=== PATIENT | female | born 1975 | race Caucasian/White ===

== ENCOUNTER → 2016-10-07 | Outpatient (CLI) | payer BC ==
[2016-10-07 12:13] LABS: BASO % 0.5 %; BASO ABS # 0.05 K/uL (0-0.2); COMPLETE YES; EOS % 1.9 %; HEMATOCRIT 41.9 % (37-47); IG% 0.3 %; LYMPH % 24.5 %; MEAN CELL VOLUME 91.9 fL (80-100); MEAN CORPUSCULAR HEMOGLOBIN 32.2 pg (25-34); MEAN CORPUSCULAR HGB CONC 35.1 g/dl (32-36); MEAN PLATELET VOLUME 10.4 fL (7.4-10.4); MONO % 7.8 %; PLATELET COUNT 247 K/uL (130-400); RED BLOOD COUNT 4.56 M/uL (4.2-5.4)
[2016-10-07 12:32] LABS: BLOOD UREA NITROGEN 17 mg/dl (7-18); BUN/CREATININE RATIO 20.1 (10-20); CALCIUM 9.4 mg/dl (8.5-10.1); CARBON DIOXIDE 25 mmol/L (21-32); CHLORIDE 109 mmol/L (98-107); CREATININE 0.85 mg/dl (0.60-1.20); GLUCOSE 105 mg/dl (70-99); HDL CHOLESTEROL 54 mg/dl; SODIUM 140 mmol/L (136-145)
[2016-10-07 12:43] LABS: ALB/GLOB RATIO 1.2 (0.9-2); ALKALINE PHOSPHATASE 58 U/L (45-117); ALT/SGPT 39 U/L (12-78); AST/SGOT 13 U/L (15-37); C-REACTIVE PROTEIN < 0.29 mg/dl (0-0.29); CHOLESTEROL 223 mg/dl (0-200); CHOLESTEROL/HDL RATIO 4.1; LDL CHOLESTEROL CALCULATED 134 mg/dl; RHEUMATOID FACTOR < 10.0 U/mL (0-15); THYROID STIMULATING HORMONE 0.795 uIu/ml (0.300-4.500); TRIGLYCERIDES 175 mg/dl (0-150); VERY LOW DENSITY LIPOPROT CALC 35 mg/dl
[2016-10-07 14:54] LABS: LYME DISEASE AB IGG NEG (NEG)
[2016-10-07 15:00] LABS: LYME DISEASE AB IGM NEG (NEG)
== END | disposition home or self-care (01) ==
LOC: C.LABPVFM 08:04
PROVIDERS: ATTEND Neuromusculoskeletal Medicine & OMM
DX: Z00.00 Encounter for general adult medical examination without abnormal findings (principal); M13.0 Polyarthritis, unspecified; M25.561 Pain in right knee; M25.562 Pain in left knee; M25.551 Pain in right hip

== ENCOUNTER 2022-01-20 06:29 | Observation (INO) ==
--- NOTE | 2021-12-19 09:39 | PAT Medication Instructions ---
Medication Instructions Date of Service December 19, 2021 Home Medications Medication Instructions Recorded tramadol 50 mg tablet 50 mg PO Q8H PRN #30 tab 11/27/21 Wheeled Walker #1 ea 12/01/21 omeprazole 20 mg capsule,delayed release 20 mg PO QAM tramadol 50 mg tablet 50 mg PO Q8H PRN acetaminophen 500 mg tablet 1,000 mg PO Q6H PRN ibuprofen 200 mg tablet 800 mg PO Q6H PRN losartan 50 mg tablet 50 mg PO QAM ASK your surgeon for instructions ibuprofen 200 mg tablet 800 mg PO Q6H PRN DO NOT take the morning of surgery losartan 50 mg tablet 50 mg PO QAM Take morning of surgery With a small sip of water, OTHERWISE NOTHING TO EAT OR DRINK AFTER MIDNIGHT: omeprazole 20 mg capsule,delayed release 20 mg PO QAM tramadol 50 mg tablet 50 mg PO Q8H PRN (if needed) acetaminophen 500 mg tablet 1,000 mg PO Q6H PRN (if needed) Take evening before surgery tramadol 50 mg tablet 50 mg PO Q8H PRN (if needed) acetaminophen 500 mg tablet 1,000 mg PO Q6H PRN (if needed) Other Notes If you have any questions please call us at [phone] or [phone] or [phone] or [phone]
--- NOTE | 2021-12-25 08:23 | Anesthesiology Consultation ---
Date of Service December 25, 2021 Assessment & Plan (1) Encounter for pre-operative examination: Chart Review Chart Review: Acceptable Risk for Surgery (pending preop Covid testing results ) and Patient seen in Pre Admission Testing - Check test AM DOS -Discussed with Dr. Winter- pt's father had cardiac arrest with rocuronium- pt has had hx of GA without noted issues. Pt can proceed as scheduled Per PAT appt on 12/25/21, patient denies any recent travel or large group activities. No known Covid positive exposures or Covid related symptoms. No known Covid infection in the past 90 days. Pt is vaccinated for Covid. Preop Covid testing scheduled 01/05/22= will await results. Educated on importance of self quarantining, social distancing and wearing mask in public for the patient one week prior to surgery and after Covid testing done Right knee arthroscopy 06/05/20= Done under GA with LMA #4. Teaching & Discussion Pre-Anesthesia Teaching/Discussion Notes: Instructed NPO after midnight before surgery,except medications with 15 cc of water. Medication instructions provided according to the PAT guidelines. History Surgery Operation Date: 01/07/22 07:15 Proposed Procedures p Right Total Knee Arthroplasty - Jase Uriostegui MD Height/Weight Height: 5 ft 4 in Weight: 89.1 kg Allergies Allergy/AdvReac Type Severity Reaction Status Date / Time adhesive Allergy Mild SKIN Verified 12/18/21 12:12 IRRITATION WITH BANDAIDS latex Allergy Mild CONTACT Verified 12/18/21 12:12 DERMATITIS WITH GLOVES Medications Home Medications Medication Instructions Recorded Confirmed Last Taken omeprazole 20 mg capsule,delayed 20 mg PO QAM 05/01/19 12/18/21 06/05/20 05:45 release tramadol 50 mg tablet 50 mg PO Q8H PRN pain #30 tabs 11/27/21 12/18/21 Unknown Wheeled Walker #1 ea 12/01/21 12/01/21 Unknown acetaminophen 500 mg tablet 1,000 mg PO Q6H PRN Pain 12/18/21 12/18/21 Unknown ibuprofen 200 mg tablet 800 mg PO Q6H PRN Pain 12/18/21 12/18/21 Unknown losartan 50 mg tablet 50 mg PO QAM 12/18/21 12/18/21 Unknown Past Medical History Medical History COVID-19 DX'D EARLY 06/2021 [facility], SINUS INFECTION, FATIGUE, LOSS TASTE AND SMELL-RECOVERED AT HOME-RESOLVED 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 (Mother's mom) Father No family history of adverse response to anesthesia FATHER HAD PARALYTIC DRUG -FULL CARDIAC ARREST-07/2020-PT SURVIVED [facility] [place]-FATHER WAS TESTED FOR ALLERGY-POSITIVE FOR THIS DRUG-PT WILL BRING FURTHER INFORMATION RE DRUG Denies family history of Colon cancer Ovarian cancer Prostate cancer Past Surgical History Surgical History History of carpal tunnel surgery of left wrist History of carpal tunnel surgery of right wrist History of cholecystectomy History of colonoscopy History of esophagogastroduodenoscopy (EGD) History of wisdom tooth extraction S/P arthroscopy of left knee S/P cubital tunnel release Past Anesthesia History No Hx of Anesthesia Complications and No Family Hx of Anesthesia Complications (with exception to father - went into cardiac arrest prior to urology surgery with longer acting paralytic- rocuronium - states he has an allergy to the rocuronium- pt has had GA without noted issues ) History of PONV History of PONV and Hx of Motion Sickness Social History Smoking Status: Never smoker Do You Dip or Chew Tobacco: No Hx Alcohol Use: Yes Alcohol type: wine alcohol intake frequency: holidays/special occasions only Hx Substance Use: No substance use type: does not use Review of Systems Patient denies chest pain, shortness of breath, dyspnea on exertion, cough, wheezing, palpitations. No hx of seizures, stroke, [place], apnea/snoring. No hx of blood clots or blood transfusions Physical Exam Vital Signs VITALS BP 126/85 P 78 TEMP 98.4 SP02 96% RESP 16 Constitutional no acute distress ENMT Thyromental Distance: > or= 3.5 Finger Breadths (3.5) Mallampati Class: III Crowns to molars Neck neck extension not limited Respiratory normal respiratory effort; no respiratory distress Auscultation: lungs clear to auscultation bilaterally; no wheezes Cardiovascular Rate/Rhythm: regular rate and regular rhythm Heart Sounds: no murmur Vessels: no carotid bruit Musculoskeletal Spine: no pain with cervical ROM Psychiatric Orientation: alert Lab Results Anesthesia Preop Results Results Anesthesia Widget: WBC 7.64 K/ul (4.8-10.8) 12/25/21 Hgb 13.6 g/dl (12.0-16.0) 12/25/21 Hct 38.2 % (34.1-44.9) 12/25/21 Plt 304 K/uL (130-400) 12/25/21 Na 138 mmol/L (136-145) 12/25/21 K 4.2 mmol/L (3.5-5.1) 12/25/21 Cl 106 mmol/L (98-107) 12/25/21 CO2 24 mmol/L (21-32) 12/25/21 BUN 25 mg/dl (6-23) H 12/25/21 Creat 0.78 mg/dl (0.6-1.2) 12/25/21 Glucose Level 113 mg/dl (70-99(Fasting)) H 12/25/21 PT 10.3 Seconds (9.0-12.0) 12/25/21 PTT 27.3 Seconds (21.0-31.0) 12/25/21 INR 1.0 (0.9-1.1) 12/25/21 Blood Type O Positive 12/25/21 Antibody Screen NEGATIVE 12/25/21 Testing Electrocardiogram Date: 07/08/21 Findings: + NSR @ (93bpm ) Normal EKG per confirming provider Chest X-Ray Date: 12/25/21 Findings: + NAD Echocardiogram Date: 03/19/20 Other Findings: + diastolic dysfunction (Grade II ) LV size, thickness, and function are normal No regional wall motion abnormalities EF 55-60% No significant valvular pathology
--- NOTE | 2022-01-14 17:47 | History and Physical Report ---
DATE OF ADMISSION: 01/20/2022 CHIEF COMPLAINT: Right knee pain and discomfort. HISTORY OF PRESENT ILLNESS: The patient is a 46-year-old female referred by my partner, Dr. Guzman smith or surgical treatment of her right knee. She has got a long history of knee problems over the years. She had a right knee scope by Dr. Hinds back in May 2020. It helped a little bit for a short period of time, but her pain recurred. It only gotten worse over time. She has been through extens daina conservative treatment including steroid shots, gel shots, PRP injections, an plastic products sales representative bracing. She has got global pain. It is increased with weightbearing. She cannot exercise and cannot walk an y long distances due to her pain. Her walking tolerance is a couple blocks. She would like to have her knee fixed. PAST MEDICAL HISTORY: 1. Hypertension. 2. Elevated cholesterol. 3. Mild obesity with BMI of 34. 4. Gastroesophageal reflux disease. 5. Osteoarthritis. 6. Kidney stones. PAST SURGICAL HISTORY: Includes: 1. Bilateral carpal tunnel release. 2. Cholecystectomy. 3. Colonoscopy. 4. EGD. 5. Oral surgery. 6. Right knee scope done in 2019. ALLERGIES: None. CURRENT MEDICATIONS: 1. Losartan. 2. Metoprolol. 3. Omeprazole. 4. Tramadol. SOCIAL HISTORY: Significant for a 46-year-old female. She does not smoke. No significant alcohol i ntake. FAMILY HISTORY: Noncontributory. REVIEW OF SYSTEMS: Negative for diabetes, neurologic problem, vascular problems or bleeding disorder s. No chest pain or shortness of breath. No history of DVT or PE. PHYSICAL EXAMINATION: GENERAL: Shows a pleasant middle-aged female. Looks to be in reasonably good health. HEENT: Benign. NECK: Supple. No lymphadenopathy. LUNGS: Clear to auscultation. HEART: Has a regular rate and rhythm. ABDOMEN: Soft, nontender, nondistended. EXTREMITIES: Grossly neurovascularly intact except as follows: Examination of the right knee reveals the patient walks with a narrow walks independently. She does limp on the right side. She has got varus alignment to her knee. She is tender with medial joint li ne. Small to moderate-sized knee effusion. Range of motion is 5 degrees short of full extension to 120 degrees of flexion, but there is no instability. No pain with hip motion. X-RAYS: X-rays of the right knee were reviewed. It shows advanced right knee degenerative joint dis ease. She has got complete loss of her medial joint space. She has got subchondral sclerosis. She has got some degree of tibial femoral subluxation. ASSESSMENT: A 46-year-old female with multiple medical comorbidities including hypertension, elevate d cholesterol, obesity, gastroesophageal reflux disease, status post knee arthroscopy in the past wit h advanced right knee degenerative joint disease. She has failed conservative measures and would lik e to have her right knee fixed. PLAN: We will proceed with right knee replacement. The risks and benefits of this procedure were ex plained to the patient and include but not limited to DVT, PE, , infection, neurological injury, vascular injury, bleeding problem, pain, limited range of motion, stiffness, failure to relieve her symptoms, incomplete relief of symptoms, need for further surgery in the future, etc. The patient un derstands and desires to proceed. Informed consent was obtained. She is fully aware that her young age this might need to be revised in the future. She has had probl ems with oxycodone. We will try and use tramadol for postoperative pain. If we need some strong, we will have to use Dilaudid. She was made aware to make sure she takes her metoprolol the morning of surgery along with omeprazole. Job ID: [id number]
[~2022-01-20 06:29] MED LIST: ACETAMINOPHEN 500 MG TAB PO SCH; BUPIVACAINE LIPOSOME/PF 266 MG, BUPIVACAINE/EPINEPHRINE 50 ML, SODIUM CHLORIDE 0.9% 30 ... INFIL SCH; CeleBREX 200 MG CAP PO SCH; FAMOTIDINE 20 MG TAB PO SCH; LR 500ML BOLUS, THEN 15ML/HR IV SCH; LR 60ML/HR IV SCH; METOCLOPRAMIDE HCL 10 MG TABLET PO SCH; MIDAZOLAM HCL 1 MG/ML 2ML VIAL ONE; Scopolamine 1 MG TDSY TD SCH; TRANEXAMIC ACID 1,000 MG **IV Intra-op IV SCH; fentaNYL citrate 100 MCG/2 ML VIAL ONE
[2022-01-20] MEDS ORDERED: BUPIVACAINE 0.5 % 5 MG/1 ML PF 10ML VIAL ONE (06:34)
[2022-01-20] MEDS ORDERED: EPINEPHrine INJ 1 MG/ML AMP ONE (06:34)
[2022-01-20] MEDS ORDERED: ROPIVACAINE 0.5% 5 MG/ML 30 ML VIAL ONE (06:34)
--- NOTE | 2022-01-20 06:53 | History & Physical Bridge Note ---
Date of Service January 20, 2022 History & Physical Bridge Note I have examined the patient, reviewed the History & Physical and in the interval since the performance of the History & Physical I have noted the following changes of clinical significance: no changes noted
[2022-01-20] MEDS ORDERED: BUPIVACAINE/EPINEPHRINE 0.25% 1:200,000 30 ML VIAL ONE (08:52)
[2022-01-20] MEDS ORDERED: SODIUM CHLORIDE 0.9% PF 50 ML VIAL ONE (08:53)
[2022-01-20] MEDS ORDERED: BUPIVACAINE LIPOSOME 1.3% 266 MG/20 ML VIAL ONE (08:53)
[2022-01-20] MEDS ORDERED: PROPOFOL IV EMULSION 10 MG/ML 20 ML VIAL IV ONE (09:18)
[2022-01-20] MEDS: ceFAZolin 2000MG 2,000 MG/15 ML SYR IV SCH ×3 (09:19→16:47)
[2022-01-20] MEDS ORDERED: ONDANSETRON INJ 2 MG/ML 2 ML VIAL IV PRN ×2 (10:04→12:08)
[2022-01-20] MEDS ORDERED: FLUMAZENIL 0.1 MG/1 ML 10 ML VIAL IV PRN (10:04)
[2022-01-20] MEDS ORDERED: PROMETHAZINE HCL 12.5 MG in SODIUM CHLORIDE 0.9% 50 ML IV PRN (10:04)
[2022-01-20] MEDS ORDERED: fentaNYL citrate 100 MCG/2 ML VIAL IV PRN (10:04)
[2022-01-20] MEDS ORDERED: NALOXONE HCL 0.4 MG/1 ML VIAL/CARP IV PRN ×2 (10:04→12:08)
--- NOTE | 2022-01-20 11:05 | Operative Report ---
PG Post Operative Report Pre & Post Diagnosis Operation Date: 01/20/22 08:50 Pre-Op Diagnosis: Right Knee Advanced Degenerative Joint Disease Post-Op Diagnosis: Right Knee Advanced Degenerative Joint Disease I identified the patient and participated in the time-out.: Yes Procedure Operation Date: 01/20/22 08:50 Actual Procedures p Right Total Knee Arthroplasty(Right) - Jase Uriostegui MD Surgeon Jase Uriostegui MD Meat Butcher Darryl Andrew PA-C Estimated Blood Loss 50 Findings Consistent with Post-Op Diagnosis Operative findings were advanced right knee DJD. She had extensive grade 4 [id number] disease and eburnation of the entire medial compartment. She had some fairly extensive grade 4 changes of patellofemoral compartment some focal grade 4 changes laterally. Moderate-sized joint effusion. Fluids 1000 cc Specimens Right knee sent for pathology Drains None Anesthesia Type Spinal MAC Complications none Disposition Accompanied Patient To Recovery: No Indications Patient is a 46-year-old female has had a long history of right knee pain discomfort. She had a right knee scope about [address] Hinds with minimal relief. Over time she developed progressive arthritic changes in her knee. Failed all conservative measures. She elected proceed with surgical management. Description of Procedure Operative implants consist of: 1 Biomet Vanguard size 65 right posterior stabilized femoral component. 2. Biomet size 67 tibial tray. 3. 10 mm posterior stabilized polyethylene insert. 4. 28 x 8 all poly patella. The patient was taken to the operating, identified, placed on the operating table supine position protectors were properly padded. IV antibiotics tried by anesthesia team. A spinal anesthetic and abductor canal block had been provided in the holding area. A Martinez catheter was placed in sterile fashion. Right thigh high tourniquet was then placed in the right lower extremities and prepped and draped in usual sterile fashion. The right leg was elevated exsanguinated with use of an Esmarch in terms playset 300 mmHg. An anterior approach of the right knee was then performed to longitudinal incision centered over the patella. Sharp dissection was carried through subcutaneous tissue down the extensor mechanism. A medial parapatellar arthrotomy incision was made. Some subperiosteal dissection was carried out medially. The fat pad was resected from Neath patella tendon. Lateral patellofemoral ligament was released. Patella was subluxated laterally and the knee was flexed. The osteophytes were taken off distal femur. The ACL and PCL were then released from distal femur and the tibia subluxated anteriorly. The external tibial alignment jig was then placed in the interface the tibia and adjusted 12 mm medially. Proximal tibial cut was made to move 2 to 3 mm of bone from the medial side. Tibia sized to a size 67. Attention drawn the femur. The distal femur stem with a sharp drill. Intramedullary canal was suction. A right 5 degree valgus cutting guide was placed. Distal femoral cutting block was pinned in place. Distal femoral cut was made to take an additional 3 mm of bone off distal femur. The femur was then sized to a size 65. The AP cutting block was pinned parallel to the epicondylar axis which was 4 degrees of external rotation. The anterior cut, anterior chamfer, posterior cut, posterior chamfer cuts were made. The box cutting guide was placed in the just slight lateral box cut was made. The knee was flexed. The remnants of the medial and lateral menisci were excised with the osteophytes taken off the posterior aspect the femur. A trial femoral component was placed for the tibial tray was pinned in maximum external rotation and the drill and stem punch used to create defect in proximal tibia for the tibial tray. The knee was then trialed and the 10 mm insert fit most appropriately. Attention drawn the patella. The patella was cleaned of all soft tissues. Patella thickness measured 20 mm in thickness was cut down to 13. Was sized to a size 28 patella. The lug holes were drilled for the 28 patella. The lateral osteophyte is moved. Patella button was placed. Knee was taken through range of motion patella tracked nicely with no thumbs test. Attention drawn to placing permanent components. All trial components were removed. Bone plug was placed in the distal femur to limit blood loss. Double batch Palacos G cement was mixed. A Biomet Vanguard size 65 right posterior stabilized femoral component, size 67 tibial tray, a 10 mm posterior stabilized polyethylene insert, and a 28 x 8 all Paller patella then cemented in place. New spreadout into full extension total cement hardened. Final cement check was then performed. Pericapsular tissues were injected with total 100 cc of combination of 20 cc of Exparel, 30 cc normal saline, 50 cc of quarter percent Marcaine with epinephrine. Patient did receive 1 g tranexamic acid. The tourniquet was then let down for turn time 54 minutes. Hemostasis reduced electrocautery. Extensor mechanism closed with combination 1 PDS suture #1 Vicryl suture in a [id number] fashion. Extensor mechanism checked found to be intact the subcutaneous tissue then closed 2 Dexon suture buried erupted fashion skin was closed skin misha. Leg was then cleaned and dried a sterile dressing was Xeroform, 4 x 4's, sterile cast padding, Rito bandage were applied. Patient then transferred to the recovery room in stable condition. Patient tolerated procedure well and there were no complications. Darryl Andrew, my physician assistant manager quality management, was present for the entire procedure. His assistance was essential and required for appropriate patient positioning, prepping and draping, surgical exposure, performing the technical details of the operation, placement the implants, closure of the wound, and placement of the sterile bandage. I attest to the content of the Intraoperative Record and any orders documented therein. Any exceptions are noted below.
--- NOTE | 2022-01-20 11:23 | XRay Report ---
XR knee RT 1 or 2V routine CLINICAL HISTORY: Surgical Post Op TECHNIQUE: 2 views of the right knee were obtained. Comparison: None available at the time of this dictation. Right knee fluoroscopy 05/16/2020 FINDINGS: Patient is status post total knee arthroplasty with expected postsurgical changes including soft tiss ue swelling and subcutaneous emphysema. No periarticular lucency or hardware fracture is seen. IMPRESSION: Expected postoperative appearance status post placement of total knee arthroplasty. ACT 112: Negative or not required by law. Electronically signed by: Artur Vega M.D. 01/20/2022 11:21 AM
--- NOTE | 2022-01-20 11:34 | Anesthesiology Progress Note ---
Date of Service January 20, 2022 Anesthesia Post Procedure Vital Signs Vital Signs: Temp Pulse Resp BP Pulse Ox O2 Del Method O2 Flow Rate 01/20/22 11:25 81 17 110/69 100 Oxymask 5 01/20/22 11:15 83 19 125/72 100 Oxymask 5 01/20/22 11:05 86 18 124/70 100 Oxymask 9 01/20/22 10:57 36.6 C 97 H 14 112/59 L 98 Oxymask 01/20/22 06:53 36.7 C 79 18 137/94 97 Room Air Transfer of Care Handoff Completed per policy Notes Mental Status: alert / awake / arousable Patient Amnestic to Procedure: Yes Nausea / Vomiting: adequately controlled Pain: adequately controlled Airway Patency, RR, SpO2: stable & adequate BP & HR: stable & adequate Hydration State: stable & adequate Neuraxial Anesthesia: was administered and sensory block is resolving Anesthetic Complications: no major complications apparent
[2022-01-20] MEDS ORDERED: MAGNESIUM HYDROXIDE SUSP 30 ML UDC PO PRN (12:08)
[2022-01-20] MEDS ORDERED: bisacodyL 10 MG SUPP PR PRN (12:08)
[2022-01-20] MEDS ORDERED: ALUMINUM/MAGNESIUM SUSP 30 ML UDC PO PRN (12:08)
[2022-01-20] MEDS ORDERED: SODIUM CHLORIDE 0.9% 1000ML 1,000 ML IV SCH (12:08)
[2022-01-20] MEDS ORDERED: diphenhydrAMINE Capsule 25 MG CAP PO PRN (12:08)
[2022-01-20] MEDS ORDERED: METOCLOPRAMIDE HCL INJ 5 MG/ML 2 ML VIAL IV PRN (12:08)
[2022-01-20] MEDS: ACETAMINOPHEN 500 MG TAB PO SCH ×2 (14:06→21:30)
[2022-01-20] MEDS: HYDROmorphone INJ 0.5 MG/0.5 ML SYR IV PRN ×2 (15:09→19:10)
[2022-01-20] MEDS: Scopolamine CHECK PATCH PLACEMENT SCH ×2 (15:10→23:17)
[2022-01-20] MEDS: HYDROmorphone HCL 2 MG TAB PO PRN (16:13)
[2022-01-20] MEDS: ASCORBIC ACID 500 MG TAB PO SCH (16:14)
[2022-01-20] MEDS ORDERED: TRANEXAMIC ACID / 0.7% NACL 1,000 MG/100 ML BAG IV SCH (17:00)
[2022-01-20] MEDS: KETOROLAC 30 MG/ML VIAL IV SCH (18:01)
[2022-01-20] MEDS ORDERED: SENNA 8.6 MG TAB PO SCH (21:00)
[2022-01-20] MEDS: DOCUSATE SODIUM 100 MG CAP PO SCH (21:30)
[2022-01-20] MEDS: ASPIRIN 81 MG ECTAB PO SCH (21:30)
[2022-01-21] MEDS: KETOROLAC 30 MG/ML VIAL IV SCH ×3 (00:06→12:08)
[2022-01-21] MEDS: ceFAZolin 2000MG 2,000 MG/15 ML SYR IV SCH (00:06)
[2022-01-21] MEDS: HYDROmorphone INJ 0.5 MG/0.5 ML SYR IV PRN (02:48)
[2022-01-21 06:14] LABS: Hematocrit (blood only) 31.6 % (34.1-44.9); Hemoglobin 11.1 g/dl (12.0-16.0); Mean Corpuscular Hemoglobin 32.3 pg (25.0-34.0); Mean Corpuscular Hgb Conc 35.1 g/dL (32.0-36.0); Mean Corpuscular Volume 91.9 fL (80.0-100.0); Mean Platelet Volume 10.1 fL (9.4-12.3); Platelet Count 212 K/uL (130-400); RDW Coefficient of Variation 12.6 % (11.5-14.5); RDW Standard Deviation 41.7 fL (36.4-46.3); Red Blood Count 3.44 M/uL (3.93-5.22); White Blood Count 8.09 K/ul (4.8-10.8)
[2022-01-21 06:37] LABS: BUN Creatinine Ratio 17.7 (10-20); Calcium 8.5 mg/dl (8.5-10.1); Creatinine Clr Calc Pharmacy 95.5 ml/min; Est GFR (Non-African American) 89.8 ml/min; Potassium 3.9 mmol/L (3.5-5.1)
[2022-01-21] MEDS: HYDROmorphone HCL 2 MG TAB PO PRN (07:27)
[2022-01-21] MEDS: ACETAMINOPHEN 500 MG TAB PO SCH (07:28)
[2022-01-21] MEDS: ASPIRIN 81 MG ECTAB PO SCH (07:29)
[2022-01-21] MEDS: DOCUSATE SODIUM 100 MG CAP PO SCH (07:29)
[2022-01-21] MEDS: ASCORBIC ACID 500 MG TAB PO SCH (07:30)
[2022-01-21] MEDS: Scopolamine CHECK PATCH PLACEMENT SCH (07:31)
[2022-01-21] MEDS ORDERED: dexAMETHasone 10 MG in SYRINGE 0 ML IV SCH (08:00)
[2022-01-21] MEDS ORDERED: MULTIVITAMIN TAB PO SCH (09:00)
[2022-01-21] MEDS ORDERED: DOCUSATE SODIUM/SENNA 50/8.6MG TAB PO SCH (09:00)
[2022-01-21] MEDS ORDERED: PANTOprazole 40 MG TAB PO SCH (09:00)
[2022-01-21] MEDS ORDERED: LOSARTAN POTASSIUM 50 MG TAB PO SCH (09:00)
--- NOTE | 2022-01-21 11:28 | Progress Notes ---
DATE OF SERVICE: 01/21/2022. SUBJECTIVE: A 46-year-old white female postoperative day 1 from a right knee replacement. She is do ing okay. Quite a bit of pain overnight. A little more comfortable this morning. No chest pain or shortness of breath. Not feeling dizzy or lightheaded. OBJECTIVE: VITAL SIGNS: Temperature 36.9. Vital signs are stable. GENERAL: Physical examination shows a pleasant middle-aged female. She is sitting up in her bedside chair and looks reasonably comfortable currently. LUNGS: Clear to auscultation. HEART: Regular rate and rhythm. ABDOMEN: Soft, nontender, nondistended. EXTREMITIES: Grossly neurovascularly intact except as follows: Examination of the right leg reveals the dressing to be clean, dry, and intact. She can dorsiflex and plantarflex her foot appropriately . She can do a straight leg raise with some effort. She is neurologically intact. LABORATORY DATA: Hemoglobin 11.1. Hematocrit 31.6. Electrolytes are stable. ASSESSMENT: A 46-year-old white female postoperative day 1 from a right knee replacement, doing reas onably well. Quite a bit of pain last night, which is not too unexpected. Seems to be under a littl e better control today. She is neurologically intact. PLAN: 1. DVT prophylaxis includes thigh-high TEDs, SCDs, and aspirin twice a day. 2. PT, OT, weightbear as tolerated. Right total knee protocol. 3. Pain control, doing okay with current pain regimen. 4. Disposition: Plan to discharge to home with some home health. We will see how therapy goes ld cristóbal Job ID: [id number]
--- NOTE | 2022-01-25 08:09 | Discharge Summary ---
Date of Service January 25, 2022 Discharge Data Procedures Performed Operation Date: 01/20/22 08:50 Actual Procedures p Right Total Knee Arthroplasty(Right) - Jase Uriostegui MD Hospital Course (1) Status post total right knee replacement: This is a 46 year old patient admitted on 01/20/22 and underwent total knee arthroplasty. She tolerated the procedure well and there were no complications. Transferred to the PACU post op and later to the orthopedic floor for further care. She was given ancef for antibiotic prophylaxis. She was also given ERIBERTO stockings, SCDs, and aspirin for DVT prophylaxis. Hemoglobin, hematocrit, and vital signs were monitored during her hospital stay and remained stable. Did not require any blood transfusions. There were no complications during her hospital stay. By post op day #1 the patient was tolerating a regular diet, pain was reasonably controlled with oral pain medicine, and she was participating in physical therapy. On post op day #1 the patient was discharged home. She was given printed discharge instructions including prescriptions for extra strength tylenol, aspirin, toradol, zofran, senokot, and hydromorphone. Continue physical therapy, weight bearing as tolerated. Continue ERIBERTO stockings. Follow up approximately 2 weeks post op or sooner if there are problems or concerns. Coding Level of Care Code None Diagnoses Status post total right knee replacement Z96.651
== END 2022-01-21 12:35 | disposition home or self-care (01) ==
LOC: ASU 06:29 → 3E 06:29